=== PATIENT | male | born 1950 | race Caucasian/White ===

== ENCOUNTER 2018-01-12 14:19 | Observation (INO) | payer OTHER ==
[~2018-01-12] VITALS: Ht 170.2 cm; Wt 74.7 kg
[2018-01-12 15:32] LABS: HEMATOCRIT 48.9 % (38.0-50.0); MCH 32.1 PG (29.0-34.0); MCHC 34.8 G/DL (30.0-36.0); MCV 92.4 FL (86-99); PLATELET COUNT 195 K/uL (156-360); RBC DIS.WIDTH-CV 13.6 % (11.8-14.6); RBC DIS.WIDTH-SD 46.9 % (39-53); RED BLOOD COUNT 5.29 M/uL (4.00-5.50); WHITE BLOOD COUNT 10.5 K/uL (4.1-10.2)
[2018-01-12 15:44] LABS: CHLORIDE 107 mEq/L (99-109); POTASSIUM 4.1 mEq/L (3.7-5.4); SODIUM 141 mEq/L (136-147)
[2018-01-12 15:45] LABS: GLUCOSE 112 mg/dL (70-99)
[2018-01-12 15:50] LABS: UREA NITROGEN (BUN) 15 mg/dL (9-23)
[2018-01-12 15:51] LABS: GFR ESTIMATE (CALCULATED) > 59 mL/min/ (58.99-99999)
[2018-01-12 15:52] LABS: TROP-I INTERPRETATION NEGATIVE; TROPONIN-I 0.01 ng/mL (0.0-0.30)
[2018-01-12 17:10] LABS: D-DIMER ELISA < 150.00 ng/mLDDU (<230)
[2018-01-12 17:11] LABS: MAGNESIUM 2.5 mg/dL (1.3-2.7)
[2018-01-12] MEDS ORDERED: LO-DOSE ASPIRIN81 M1 PO (19:04)
[2018-01-12] MEDS ORDERED: PERCOCET 10/1 TABLET PO (19:04)
[2018-01-12] MEDS ORDERED: LOPRESSOR25 MG PO (19:04)
[2018-01-12] MEDS ORDERED: ZESTRIL20 MG PO (19:04)
[2018-01-12] MEDS ORDERED: ELIQUIS5 MG PO (19:05)
[2018-01-12] MEDS ORDERED: ADVIL200 MG PO (19:06)
[2018-01-12 22:48] VITALS: BP 154/81
[2018-01-12 23:52] LABS: ALBUMIN 3.9 g/dL (3.2-4.8)
[2018-01-12 23:55] LABS: TOTAL PROTEIN 6.7 g/dL (6.4-8.3)
[2018-01-12 23:56] LABS: TOTAL BILIRUBIN 0.6 mg/dL (0.0-1.0)
[2018-01-12 23:57] LABS: ALKALINE PHOSPHATASE 77 IU/L (3-129)
[2018-01-13] LABS: AST (GOT) 15 IU/L (2-34); DIRECT BILIRUBIN 0.3 mg/dL (0.0-0.3)
[2018-01-13 00:01] LABS: ALT (GPT) 21 IU/L (3-49); LIPASE 9 U/L (1.0-51.0)
[2018-01-13 00:08] LABS: TROP-I INTERPRETATION NEGATIVE; TROPONIN-I 0.01 ng/mL (0.0-0.30)
[2018-01-13 03:59] VITALS: BP 143/69
[2018-01-13 06:51] LABS: HEMOGLOBIN 16.4 G/DL (12.5-16.6); MCH 31.4 PG (29.0-34.0); MCHC 33.5 G/DL (30.0-36.0); MCV 93.9 FL (86-99); PLATELET COUNT 170 K/uL (156-360); RBC DIS.WIDTH-CV 13.7 % (11.8-14.6); RED BLOOD COUNT 5.22 M/uL (4.00-5.50)
[2018-01-13 07:11] LABS: TROP-I INTERPRETATION NEGATIVE; TROPONIN-I 0.01 ng/mL (0.0-0.30)
[2018-01-13 07:18] LABS: CHLORIDE 107 MEQ/L (99-109); GFR ESTIMATE (CALCULATED) > 59 mL/min/ (58.99-99999); GLUCOSE 140 mg/dL (70-99); POTASSIUM 4.9 MEQ/L (3.7-5.4); SODIUM 138 MEQ/L (136-147); UREA NITROGEN (BUN) 18 mg/dL (9-23)
[2018-01-13 07:36] VITALS: BP 165/80
[2018-01-13] MEDS ORDERED: AZITHROMYCIN500 M1 PO (11:23)
[2018-01-13 11:26] VITALS: BP 143/67
[2018-01-13 15:30] VITALS: BP 135/67
[2018-01-13] MEDS ORDERED: PREDNISONE10 MG PO (16:07)
[2018-01-13] MEDS ORDERED: PROVENTIL,VENTOL2 MG PO (16:10)
[2018-01-13] MEDS ORDERED: DULERA 100 MCG/13 GM IH (22:07)
[2018-01-13] MEDS ORDERED: SPIRIVA RESPIMAT4 GM IH (22:08)
== END 2018-01-13 19:25 ==
LOC: EME 14:19 → EDOF 19:52 → 5WEST 19:52 → ENRESERV 20:06 → 5WEST 22:45
PROVIDERS: Hospitalist
DX: R07.9 Chest pain, unspecified (principal); I10 Essential (primary) hypertension; J44.9 Chronic obstructive pulmonary disease, unspecified; R91.1 Solitary pulmonary nodule; E78.5 Hyperlipidemia, unspecified; Z86.73 Personal history of transient ischemic attack (TIA), and cerebral infarction without residual deficits; I48.0 Paroxysmal atrial fibrillation; F32.9 Major depressive disorder, single episode, unspecified; Z79.01 Long term (current) use of anticoagulants; F17.210 Nicotine dependence, cigarettes, uncomplicated; Z59.0 Homelessness; G89.4 Chronic pain syndrome; M54.5 Low back pain; Z79.891 Long term (current) use of opiate analgesic; T45.526A Underdosing of antithrombotic drugs, initial encounter; Z91.19 Patient's noncompliance with other medical treatment and regimen; F12.90 Cannabis use, unspecified, uncomplicated; Z80.49 Family history of malignant neoplasm of other genital organs; Z80.1 Family history of malignant neoplasm of trachea, bronchus and lung
CPT/HCPCS: 71046; 71250; 80048; 80076; 80306 90; 83690; 83735; 84484; 85027; 85379; 93005; 94640; 94640 76; 99202; 99281; 99285; G0378; J2930; J7512

== ENCOUNTER 2018-01-13 17:22 | Inpatient (IN) | payer OTHER ==
[~2018-01-13] VITALS: Ht 170.2 cm; Wt 69.3 kg
[~2018-01-13 17:22] MED LIST: ADVIL200 MG PO; AZITHROMYCIN500 M1 PO; ELIQUIS5 MG PO; LO-DOSE ASPIRIN81 M1 PO; LOPRESSOR25 MG PO; PERCOCET 10/1 TABLET PO; PREDNISONE10 MG PO; PROVENTIL,VENTOL2 MG PO; ZESTRIL20 MG PO
[2018-01-13 19:25] VITALS: BP 152/79
[2018-01-13] MEDS ORDERED: DULERA 100 MCG/13 GM IH (22:07)
[2018-01-13] MEDS ORDERED: SPIRIVA RESPIMAT4 GM IH (22:08)
[2018-01-14 08:04] VITALS: BP 138/80
[2018-01-14 16:16] VITALS: BP 140/71
[2018-01-15 07:42] VITALS: BP 176/71
[2018-01-15 11:07] VITALS: BP 141/63
[2018-01-15 15:42] VITALS: BP 176/80
[2018-01-15 18:54] VITALS: BP 166/77
[2018-01-16 07:29] VITALS: BP 188/86
[2018-01-16 11:36] VITALS: BP 176/78
[2018-01-16 15:24] VITALS: BP 144/66
[2018-01-17 07:27] VITALS: BP 145/85
[2018-01-17 15:33] VITALS: BP 151/68
[2018-01-17 18:49] VITALS: BP 156/72
[2018-01-18 07:43] VITALS: BP 171/82
[2018-01-18 15:49] VITALS: BP 186/87
[2018-01-18 19:51] VITALS: BP 179/83
[2018-01-19 07:23] VITALS: BP 187/83
[2018-01-19 15:03] VITALS: BP 161/67
[2018-01-20 07:37] VITALS: BP 194/91
[2018-01-20 15:17] VITALS: BP 184/84
[2018-01-21 07:55] VITALS: BP 188/82
[2018-01-21] MEDS ORDERED: ARIPIPRAZOLE2 MG PO (09:20)
[2018-01-21] MEDS ORDERED: ZESTRIL20 MG PO (09:20)
[2018-01-21] MEDS ORDERED: ELIQUIS5 MG PO (09:20)
[2018-01-21] MEDS ORDERED: LOPRESSOR25 MG PO (09:20)
[2018-01-21] MEDS ORDERED: CITALOPRAM HBR20 MG PO (09:20)
[2018-01-21] MEDS ORDERED: PROVENTIL,VENTOL2 MG PO (09:20)
[2018-01-21] MEDS ORDERED: SPIRIVA RESPIMAT4 GM IH (09:20)
[2018-01-21] MEDS ORDERED: DULERA 100 MCG/13 GM IH (09:20)
[2018-01-21] MEDS ORDERED: LO-DOSE ASPIRIN81 M1 PO (09:20)
== END 2018-01-21 12:05 | disposition home or self-care (01) | DRG 885 ==
LOC: 1WEST 17:22 → ENRESERV 17:24 → 1WEST 19:20
DX: F32.2 Major depressive disorder, single episode, severe without psychotic features (principal); I10 Essential (primary) hypertension; E78.5 Hyperlipidemia, unspecified; I48.0 Paroxysmal atrial fibrillation; G89.4 Chronic pain syndrome; F17.200 Nicotine dependence, unspecified, uncomplicated; Z91.14 Patient's other noncompliance with medication regimen; Z86.73 Personal history of transient ischemic attack (TIA), and cerebral infarction without residual deficits; Z79.01 Long term (current) use of anticoagulants; Z79.82 Long term (current) use of aspirin
CPT/HCPCS: 94640; 94640 76; 97150 GO; 97165 GO; J7512